=== PATIENT | male | born 1965 ===

== ENCOUNTER 2019-03-10 12:36 | Emergency (ER) | payer SELFPAY ==
[2019-03-10] MEDS ORDERED: Zofran 4 MG/2 ML VIAL IV ONE (12:48)
[2019-03-10] MEDS ORDERED: Sodium Chloride 0.9% 1000 ML 1,000 ML IV STA ×3 (12:48→16:21)
[2019-03-10] MEDS ORDERED: Sodium Chloride 0.9% 1000 ML 1,000 ML ONE ×3 (12:51→16:24)
[2019-03-10 12:57] LABS: BASOPHIL % 0.6 % (0.0-0.4); Basophil (Absolute #) 0.02 (0-0.4); Eosinophil % 4.5 % (0.00-5.0); Eosinophil (Absolute #) 0.15 (0-0.5); Granulocyte Absolute (ANC) 1.57 (1.4-6.9); Granulocytes % 47.6 % (36.0-66.0); Hematocrit 56.3 % (42-50); Hemoglobin 19.2 gm/dl (12.5-18.0); Lymphocyte (Absolute #) 1.35 (1.0-4.6); Lymphocytes % 40.9 % (24.0-44.0); Mean Cell Volume 87.6 fl (78-100); Mean Corpuscular Hgb Concent. 34.1 g/dl (32-36); Mean Platelet Volume 11.7 fl (6-9.5); Monocyte (Absolute #) 0.21 (0.0-1.3); Monocytes % 6.4 % (0.0-12.0); Platelet Count 182 K/mm3 (150-450); Red Blood Count 6.43 M/mm3 (4.1-5.6); Red Cell Distribution Width 13.8 % (11.5-14.0); White Blood Count 3.3 K/mm3 (4.0-10.5)
[2019-03-10 12:58] LABS: Mean Corpuscular Hemoglobin 29.8 pg (26-32)
[2019-03-10 13:08] LABS: ALBUMIN 4.9 g/dL (3.5-5.0); ANION GAP 14.3 MEQ/L (5-15); BILIRUBIN,TOTAL 0.8 mg/dL (0.2-1.3); Calcium 10.6 mg/dL (8.4-10.2); Creatinine 1 1.94 mg/dL (0.66-1.25); Potassium 4.3 mmol/L (3.5-5.1); Total Protein 8.7 g/dL (6.3-8.2)
[2019-03-10] MEDS ORDERED: Ecotrin 325 MG PO STA (13:10)
[2019-03-10] MEDS ORDERED: BABY ASPIRIN 81 MG CHEW ONE (13:20)
[2019-03-10] MEDS ORDERED: Zofran 4 MG/2 ML VIAL ONE (13:20)
[2019-03-10] MEDS ORDERED: BABY ASPIRIN 81 MG CHEW PO ONE (13:28)
[2019-03-10 15:27] LABS: Appearance SLIGHTLY CLOUDY (CLEAR); Bacteria RARE /HPF (NEGATIVE); Bilirubin NEGATIVE (NEGATIVE); Blood NEGATIVE Ery/ul (0-5); Glucose NEGATIVE (NEGATIVE); Ketones NEGATIVE (NEGATIVE); Leukocyte Esterase NEGATIVE (NEGATIVE); Mucus SLIGHT /HPF (NEGATIVE); Nitrite NEGATIVE (NEGATIVE); Protein,Urine Dip NEGATIVE (Negative); Specific Gravity 1.012 (1.005-1.025); Urobilinogen NEGATIVE mg/dL (0-1); WBC 0-2 /HPF (0-5)
[2019-03-10 15:28] LABS: Epithelial Cells RARE /HPF (FEW); Hyaline Casts 0-2 /LPF (0-2)
[2019-03-10 16:05] LABS: ANION GAP 8.9 MEQ/L (5-15); Calcium 9.6 mg/dL (8.4-10.2); Creatinine 1 1.54 mg/dL (0.66-1.25); Potassium 4.8 mmol/L (3.5-5.1); TROPONIN 0.012 ng/mL (0.000-0.034)
[2019-03-10 16:08] VITALS: O2SAT 98
[2019-03-10 17:10] VITALS: BP 132/86; PULSE 62
--- NOTE | 2019-03-10 17:52 | ERPHSYRPT ---
- History of Present Illness Source: patient, other (employer) Exam Limitations: no limitations Patient Subjective Stated Complaint: TO ER C/O AMS WEAKNESS AND DIAPHORESIS BEGAN APPROX 1230. PT DENIES CP STATES PAIN TO HEAD STATES BECAME DIZZY WHILE STANDING Triage Nursing Assessment: TO ER C/O WEAKNESS DIAPHORESIS, SLURRED SPEECH PRESENT AND BLURRED VISION. PT HAD HEAD PAIN OF 8 ON ARRIVAL WITH SLOW RESPONSES AND DIZZINESS. 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 He was brought to the ER by his employer. Timing/Duration: today Severity: severe Modifying Factors: Improves With: cold therapy, rest Associated Symptoms: nausea, diaphoresis, headaches, weakness Allergies/Adverse Reactions: No Known Drug Allergies Allergy (Unverified 03/10/19 13:25) - Review of Systems Constitutional: Fatigue, Malaise, Weakness Eyes: No Symptoms Ears, Nose, & Throat: No Symptoms Respiratory: No Cough, No Dyspnea Cardiac: No Chest Pain, No Edema, No Syncope Abdominal/Gastrointestinal: No Abdominal Pain, No Nausea, No Vomiting, No Diarrhea Genitourinary Symptoms: No Dysuria Musculoskeletal: No Back Pain, No Neck Pain Skin: No Rash Neurological: Dizziness, Headache, Lethargy, Other (diaphoresis) - Past Medical History Cardiac History: Hypertension - Past Surgical History Past Surgical History: No - Social History Smoking Status: Never smoker Drug Use: none - Nursing Vital Signs Nursing Vital Signs: Initial Vital Signs Pulse Rate 51 L 03/10/19 12:46 Respiratory Rate 14 03/10/19 12:46 Blood Pressure 93/51 03/10/19 12:46 O2 Sat by Pulse Oximetry 99 03/10/19 12:46 Pain Scale Pain Intensity 0 - Physical Exam General Appearance: severe distress, lethargy Eye Exam: PERRL/EOMI, eyes nml inspection Ears, Nose, Throat Exam: normal ENT inspection, TMs normal, pharynx normal, moist mucous membranes Neck Exam: normal inspection, non-tender, supple, full range of motion Respiratory Exam: normal breath sounds, lungs clear, No respiratory distress Cardiovascular Exam: regular rate/rhythm, normal heart sounds, normal peripheral pulses Gastrointestinal/Abdomen Exam: soft, normal bowel sounds, No tenderness, No mass Back Exam: normal inspection, normal range of motion, No CVA tenderness, No vertebral tenderness Extremity Exam: normal inspection, normal range of motion, pelvis stable Neurologic Exam: alert, oriented x 3, cooperative, normal mood/affect, nml cerebellar function, nml station & gait, sensation nml, No motor deficits Skin Exam: diaphoresis, pale SpO2 Interpretation: normal SpO2: 98 O2 Delivery: Room Air - Course EKG Interpreted by Me: RATE (58bpm), Ischemic ST-T changes (V1-V3), Non- specific ST Changes - CT Exams Head CT Interpretation: Negative Ordered Tests: Active Orders 24 hr Category Date Time Status NPO (ED) STAT Care 03/10/19 12:44 Active HEAD WITHOUT CONTRAST [CT] Stat Exams 03/10/19 12:44 Taken BMP Routine Lab 03/10/19 15:41 Completed CBC W DIFF Stat Lab 03/10/19 12:48 Completed CMP Stat Lab 03/10/19 12:48 Completed TROPONIN Q3H Lab 03/10/19 13:00 Completed TROPONIN Q3H Lab 03/10/19 15:41 Completed TROPONIN Q3H Lab 03/10/19 19:00 Ordered TROPONIN Q3H Lab 03/10/19 22:00 Ordered TROPONIN Q3H Lab 03/11/19 01:00 Ordered UA W/RFX UR CULTURE Stat Lab 03/10/19 15:19 Completed Medication Summary Discontinued Medications Generic Name Dose Route Start Last Admin Trade Name Freq PRN Reason Stop Dose Admin Aspirin 325 mg 03/10/19 13:10 03/10/19 13:30 Ecotrin 325 Mg PO 03/10/19 13:11 Not Given QAM STA Aspirin Confirm 03/10/19 13:20 Baby Aspirin 81 Mg Chew Administered 03/10/19 13:21 Dose 324 mg .ROUTE .STK-MED ONE Aspirin 324 mg 03/10/19 13:28 03/10/19 13:30 Baby Aspirin 81 Mg Chew PO 03/10/19 13:29 324 mg STAT ONE Administration Sodium Chloride 1,000 mls @ 999 mls/hr 03/10/19 12:48 03/10/19 14:48 Sodium Chloride 0.9% 1000 Ml IV 03/10/19 13:48 Infused .Q1H1M STA Infusion Sodium Chloride Confirm 03/10/19 12:51 Sodium Chloride 0.9% 1000 Ml Administered 03/10/19 12:52 Dose 1,000 mls @ ud .ROUTE .STK-MED ONE Sodium Chloride 1,000 mls @ 999 mls/hr 03/10/19 13:33 03/10/19 14:48 Sodium Chloride 0.9% 1000 Ml IV 03/10/19 14:33 Infused .Q1H1M STA Infusion Sodium Chloride Confirm 03/10/19 13:32 Sodium Chloride 0.9% 1000 Ml Administered 03/10/19 13:33 Dose 1,000 mls @ ud .ROUTE .STK-MED ONE Sodium Chloride 1,000 mls @ 999 mls/hr 03/10/19 16:21 03/10/19 17:32 Sodium Chloride 0.9% 1000 Ml IV 03/10/19 17:21 Infused .Q1H1M STA Infusion Sodium Chloride Confirm 03/10/19 16:24 Sodium Chloride 0.9% 1000 Ml Administered 03/10/19 16:25 Dose 1,000 mls @ ud .ROUTE .STK-MED ONE Ondansetron HCl 4 mg 03/10/19 12:48 03/10/19 13:24 Zofran 4 Mg/2 Ml Vial IV 03/10/19 12:49 4 mg STAT ONE Administration Ondansetron HCl Confirm 03/10/19 13:20 Zofran 4 Mg/2 Ml Vial Administered 03/10/19 13:21 Dose 4 mg .ROUTE .STK-MED ONE Lab/Rad Data: Laboratory Result Diagrams 03/10/19 12:48 03/10/19 15:41 Laboratory Results 03/10/19 03/10/19 03/10/19 Range/Units 15:41 15:19 13:00 WBC (4.0-10.5) K/mm3 RBC (4.1-5.6) M/mm3 Hgb (12.5-18.0) gm/dl Hct (42-50) % MCV (78-100) fl MCH (26-32) pg MCHC (32-36) g/dl RDW (11.5-14.0) % Plt Count (150-450) K/mm3 MPV (6-9.5) fl Gran % (36.0-66.0) % Eos # (Auto) (0-0.5) Absolute Lymphs (auto) (1.0-4.6) Absolute Monos (auto) (0.0-1.3) Lymphocytes % (24.0-44.0) % Monocytes % (0.0-12.0) % Eosinophils % (0.00-5.0) % Basophils % (0.0-0.4) % Absolute Granulocytes (1.4-6.9) Basophils # (0-0.4) Sodium 144 (137-145) mmol/L Potassium 4.8 (3.5-5.1) mmol/L Chloride 107 (98-107) mmol/L Carbon Dioxide 32 H (22-30) mmol/L Anion Gap 8.9 (5-15) MEQ/L BUN 15 (9-20) mg/dL Creatinine 1.54 H (0.66-1.25) mg/dL Estimated GFR 50.5 ML/MIN Glucose 92 (74-106) mg/dL Calcium 9.6 (8.4-10.2) mg/dL Total Bilirubin (0.2-1.3) mg/dL AST (17-59) U/L ALT (0-50) U/L Alkaline Phosphatase (38-126) U/L Troponin I 0.012 0.015 (0.000-0.034) ng/mL Serum Total Protein (6.3-8.2) g/dL Albumin (3.5-5.0) g/dL Urine Color YELLOW (YELLOW) Urine Appearance SLIGHTLY CLOUDY (CLEAR) Urine pH 7.0 (5-6) Ur Specific [place] 1.012 (1.005-1.025) Urine Protein NEGATIVE (Negative) Urine Ketones NEGATIVE (NEGATIVE) Urine Blood NEGATIVE (0-5) Rayshawn/ul Urine Nitrite NEGATIVE (NEGATIVE) Urine Bilirubin NEGATIVE (NEGATIVE) Urine Urobilinogen NEGATIVE (0-1) mg/dL Ur Leukocyte Esterase NEGATIVE (NEGATIVE) Urine WBC (Auto) 0-2 (0-5) /HPF Urine RBC (Auto) NONE (0-2) /HPF U Hyaline Cast (Auto) 0-2 (0-2) /LPF U Epithel Cells (Auto) RARE (FEW) /HPF Urine Bacteria (Auto) RARE (NEGATIVE) /HPF Urine Mucus (Auto) SLIGHT (NEGATIVE) /HPF Urine Culture Reflexed NO (NO) Urine Glucose NEGATIVE (NEGATIVE) mg/dL 03/10/19 03/10/19 Range/Units 12:48 12:48 WBC 3.3 L (4.0-10.5) K/mm3 RBC 6.43 H* (4.1-5.6) M/mm3 Hgb 19.2 H (12.5-18.0) gm/dl Hct 56.3 H (42-50) % MCV 87.6 (78-100) fl MCH 29.8 (26-32) pg MCHC 34.1 (32-36) g/dl RDW 13.8 (11.5-14.0) % Plt Count 182 (150-450) K/mm3 MPV 11.7 H (6-9.5) fl Gran % 47.6 (36.0-66.0) % Eos # (Auto) 0.15 (0-0.5) Absolute Lymphs (auto) 1.35 (1.0-4.6) Absolute Monos (auto) 0.21 (0.0-1.3) Lymphocytes % 40.9 (24.0-44.0) % Monocytes % 6.4 (0.0-12.0) % Eosinophils % 4.5 (0.00-5.0) % Basophils % 0.6 (0.0-0.4) % Absolute Granulocytes 1.57 (1.4-6.9) Basophils # 0.02 (0-0.4) Sodium 144 (137-145) mmol/L Potassium 4.3 (3.5-5.1) mmol/L Chloride 109 H (98-107) mmol/L Carbon Dioxide 26 (22-30) mmol/L Anion Gap 14.3 (5-15) MEQ/L BUN 15 (9-20) mg/dL Creatinine 1.94 H (0.66-1.25) mg/dL Estimated GFR 38.7 ML/MIN Glucose 140 H (74-106) mg/dL Calcium 10.6 H (8.4-10.2) mg/dL Total Bilirubin 0.80 (0.2-1.3) mg/dL AST 35 (17-59) U/L ALT 41 (0-50) U/L Alkaline Phosphatase 62 (38-126) U/L Troponin I (0.000-0.034) ng/mL Serum Total Protein 8.7 H (6.3-8.2) g/dL Albumin 4.9 (3.5-5.0) g/dL Urine Color (YELLOW) Urine Appearance (CLEAR) Urine pH (5-6) Ur Specific [place] (1.005-1.025) Urine Protein (Negative) Urine Ketones (NEGATIVE) Urine Blood (0-5) Rayshawn/ul Urine Nitrite (NEGATIVE) Urine Bilirubin (NEGATIVE) Urine Urobilinogen (0-1) mg/dL Ur Leukocyte Esterase (NEGATIVE) Urine WBC (Auto) (0-5) /HPF Urine RBC (Auto) (0-2) /HPF U Hyaline Cast (Auto) (0-2) /LPF U Epithel Cells (Auto) (FEW) /HPF Urine Bacteria (Auto) (NEGATIVE) /HPF Urine Mucus (Auto) (NEGATIVE) /HPF Urine Culture Reflexed (NO) Urine Glucose (NEGATIVE) mg/dL - Progress Progress: improved Progress Note: 03/10/19 17:52 Pt was seen and examined. Ct head was negative. Lab work showed Troponinsx2 that were negative. Pt on EKG showed elevated ST changes V1-V3, and ASA 325mg PO was given. Pt was hypotensive, and could not give any Nitro or beta alyce. Pt is taking Losartan and Atenolol. Labs showed sCr of 1.94. WBCs was 3.3 and Hgb 19.2. Pt got 2 lit of IVF and immediatly felt better. Another BMP was done that showed sCr of 1.54. I ordered another liter of IVF, and pt was advised, not to take his Losartan anymore, until his labs were repetaed and his sCr is back to normal. Pt was instructed to drink plenty of fluids. 03/10/19 17:52 Will see patient in: office Counseled pt/family regarding: need for follow-up - Departure Departure Disposition: Home Clinical Impression: Dehydration after exertion Condition: Stable Critical Care Time: No Referrals: CHUN FRANCIS DO [Primary Care Provider] - Additional Instructions: Increase fluid intake. F/U with BMP with PCP. Avoid Losartan at this point, till kidney function is back to normal.
--- NOTE | 2019-03-10 20:56 | XRAY ---
Indication: Altered mental status. Possible stroke. Multiple contiguous axial images obtained through the head without contrast. Comparison: None Images through the base of the brain degraded by motion artifact. Anterior left middle fossa demonstrates 2.0 x 4.7 cm arachnoid cyst. No acute intracranial hemorrhage, abnormal extra-axial fluid collection, or hydrocephalus. Baez-white matter differentiation preserved. Bony calvarium intact. Visualized paranasal sinuses and mastoid air cells are grossly clear. Impression: Motion artifact. Left middle fossa arachnoid cyst. No gross acute intracranial abnormalities. Comment: Preliminary interpretation was made by [facility] who does not report incidental arachnoid cyst. CTDI 70.00
== END 2019-03-10 18:01 | disposition home or self-care (01) ==
LOC: ED 12:36
DX: E86.0 Dehydration (principal); I10 Essential (primary) hypertension
CPT/HCPCS: 36000; 36415; 70450; 80048; 80053; 81001; 84484; 85025; 96360; 96361; 96374; 99284; J2405; A9270-GY